=== PATIENT | female | born 1965 | race Caucasian/White ===

== ENCOUNTER 2018-05-21 13:34 | Inpatient (IN) | payer OTHER ==
[~2018-05-21] VITALS: Ht 154.9 cm; Wt 65.3 kg
[2018-05-21 13:51] VITALS: Ht 154.9 cm; Wt 65.3 kg
[2018-05-21 14:35] LABS: BASOPHIL % 0.3 % (0-2); PLATELET COUNT 276 x10^3mcL (130-400); RED CELL DISTRIBUTION WIDTH 12.7 % (11.5-14.5)
[2018-05-21 14:42] LABS: CALCIUM 8.9 mg/dL (8.5-10.1); CARBON DIOXIDE 29.6 mmol/L (21-32); CHLORIDE SERUM 102 mmol/L (98-107); CREATININE SERUM 0.9 mg/dL (0.6-1.0); GFR1 > 60 mL/min; GLUCOSE SERUM 131 mg/dL (74-106); POTASSIUM SERUM 3.6 mmol/L (3.5-5.1); SODIUM SERUM 139 mmol/L (136-145)
[2018-05-21] MEDS ORDERED: DYAZIDE1 CAP PO (15:36)
[2018-05-21] MEDS ORDERED: EXCEDRIN MIGRA1 EAC1 PO (15:37)
[2018-05-21 16:12] LABS: microscopic required? YES; urine erythrocyte TRACE (NEGATIVE)
[2018-05-21 16:25] LABS: AMPHETAMINE QUAL UR NONE DETECTED (See below)
[2018-05-21 16:58] LABS: T3 TOTAL 1.06 ng/mL
[2018-05-21 17:02] LABS: MAGNESIUM 2.1 mg/dL (1.8-2.4)
[2018-05-21 17:04] VITALS: BP 148/78
[2018-05-21 17:11] LABS: FREE T4 1.1 ng/dL (0.76-1.46); FREE THYROXINE INDEX 2.9 ug/dL (1.4-4.5); T4(THYROXINE) 8.8 ug/dL (4.7-13.3)
[2018-05-21 20:44] VITALS: BP 130/68
[2018-05-22 05:47] VITALS: BP 116/67
[2018-05-22 07:16] LABS: BASOPHIL % 0.5 % (0-2); PLATELET COUNT 236 x10^3mcL (130-400); RED CELL DISTRIBUTION WIDTH 12.7 % (11.5-14.5)
[2018-05-22 07:35] LABS: CALCIUM 8.2 mg/dL (8.5-10.1); CARBON DIOXIDE 28.3 mmol/L (21-32); CHLORIDE SERUM 108 mmol/L (98-107); CREATININE SERUM 0.8 mg/dL (0.6-1.0); GFR1 > 60 mL/min; GLUCOSE SERUM 92 mg/dL (74-106); MAGNESIUM 1.9 mg/dL (1.8-2.4); PHOSPHOROUS 2.7 mg/dL (2.5-4.9); POTASSIUM SERUM 3.7 mmol/L (3.5-5.1); SODIUM SERUM 142 mmol/L (136-145)
[2018-05-22 07:49] VITALS: BP 128/65
[2018-05-22 12:54] VITALS: BP 137/62
[2018-05-22 16:21] VITALS: BP 117/65
== END 2018-05-22 19:05 | disposition home or self-care (01) | DRG 74 ==
LOC: ED 13:34 → DU 15:22
PROVIDERS: Emergency Medicine; Family Medicine
DX: G90.9 Disorder of the autonomic nervous system, unspecified (principal); F41.9 Anxiety disorder, unspecified; I11.9 Hypertensive heart disease without heart failure; I34.0 Nonrheumatic mitral (valve) insufficiency; G43.909 Migraine, unspecified, not intractable, without status migrainosus; I36.1 Nonrheumatic tricuspid (valve) insufficiency; Z98.1 Arthrodesis status; Z68.27 Body mass index [BMI] 27.0-27.9, adult
CPT/HCPCS: 83880; 84439; A9500; J1885; J2405; J2785; J7030; Q0092

== ENCOUNTER 2018-08-01 10:01 | Emergency (ER) | payer OTHER ==
[~2018-08-01] VITALS: Ht 154.9 cm; Wt 57.2 kg
[~2018-08-01 10:01] MED LIST: DYAZIDE1 CAP PO; EXCEDRIN MIGRA1 EAC1 PO
[2018-08-01 10:05] VITALS: Ht 154.9 cm; Wt 57.2 kg
[2018-08-01 11:17] LABS: BASOPHIL % 0.4 % (0-2); PLATELET COUNT 230 x10^3mcL (130-400); RED CELL DISTRIBUTION WIDTH 13.6 % (11.5-14.5)
[2018-08-01 11:27] LABS: ALBUMIN 3.6 g/dL (3.4-5.0); ALKALINE PHOSPHATASE 61 U/L (46-116); ALT/SGPT 34 U/L (14-59); AST/SGOT 20 U/L (15-37); BILIRUBIN TOTAL 0.72 mg/dL (0.20-1.00); CALCIUM 8.5 mg/dL (8.5-10.1); CARBON DIOXIDE 30.6 mmol/L (21-32); CHLORIDE SERUM 103 mmol/L (98-107); GFR1 > 60 mL/min; GLUCOSE SERUM 110 mg/dL (74-106); SODIUM SERUM 141 mmol/L (136-145); TOTAL PROTEIN, SERUM 6.8 g/dL (6.4-8.2)
[2018-08-01 13:31] VITALS: BP 122/75
== END 2018-08-01 13:31 | disposition home or self-care (01) ==
LOC: ED 10:01
PROVIDERS: Emergency Medicine
DX: R07.89 Other chest pain (principal); R06.00 Dyspnea, unspecified; R20.0 Anesthesia of skin; I10 Essential (primary) hypertension; F41.9 Anxiety disorder, unspecified
CPT/HCPCS: 36600; 83880; J2060